=== PATIENT | female | born 1980 | race Caucasian/White ===

== ENCOUNTER 2019-12-20 12:50 | Emergency (ER) | payer SELFPAY ==
[~2019-12-20] VITALS: Ht 180.3 cm; Wt 95.5 kg
[2019-12-20 12:59] VITALS: BP 137/86; TEMP 97.9
[2019-12-20] MEDS ORDERED: CEPHALEXIN500 M1 PO (13:35)
[2019-12-20] MEDS ORDERED: NORCO 325 MG-51 TAB PO (13:36)
[2019-12-20] MEDS ORDERED: ZOFRAN 4MG T4 MG/TAB PO (13:56)
[2019-12-20 14:03] VITALS: PULSE 95
[2019-12-20] MEDS ORDERED: XANAX 0.5MG0.5 MG PO (14:06)
--- NOTE | 2019-12-20 15:17 | NUR ---
Coke Loader received a phone call from Admissions who advised patient was in ED waiting room and would like to speak with social insurance adviser. Patient was discharged from the ED this afternoon. SW met with patient who reports she is currently homeless and staying at [facility]. Patient reports she abuses alcohol and has been binge drinking lately. Patient states she wants to go somewhere to detox if able. SW contacted [facility] in [place] and [facility] in [place], both do not have beds available. [facility] may have a bed later this evening and SW advised patient to call back to check. Patient is interested in having an appointment set up with [facility] for alcohol treatment. KENDALL assisted patient in setting up an appointment for December 27 @ 1400. SW wrote down appointment for patient. Patient advised she has been set up with [facility] for primary care. Patient is self pay and reports she is not sure if she has insurance or not. SW provided [facility] Resource Guide and Drug/Alcohol Resource Guide to patient which included phone numbers for Detox facilities. SW encouraged patient to keep calling to check for bed availability. Patient states she has a ride coming to get her and plans to return to [facility]. No additional needs at this time.
[2019-12-20] MEDS ORDERED: ATIVAN 0.50.5 MG/TAB PO (18:25)
== END 2019-12-20 14:03 | disposition home or self-care (01) ==
LOC: COL.ER 12:50 → EDSEX 12:51 → COL.ER 14:03
DX: S50.812A Abrasion of left forearm, initial encounter (principal); W19.XXXA Unspecified fall, initial encounter

== ENCOUNTER 2019-12-20 16:01 | Emergency (ER) | payer SELFPAY ==
[~2019-12-20] VITALS: Ht 180.3 cm; Wt 95.5 kg
[~2019-12-20 16:01] MED LIST: CEPHALEXIN500 M1 PO; NORCO 325 MG-51 TAB PO; XANAX 0.5MG0.5 MG PO; ZOFRAN 4MG T4 MG/TAB PO
[2019-12-20 16:06] VITALS: TEMP 98.4
[2019-12-20 17:28] LABS: BASO # 0.1 (0.0-0.2); BASO % 0.6 % (0.0-2.0); EOS % 0.2 % (0-4.0); GRAN % 72.7 % (42.2-75.2); HEMATOCRIT 40.8 % (37.0-47.0); HEMOGLOBIN 13.6 g/dl (12.5-16.0); LYMPH # 1.7 (1.2-3.4); LYMPH % 17.2 % (20.0-51.0); MEAN CELL VOLUME 93 fl (80.0-100.0); MEAN CORPUSCULAR HEMOGLOBIN 31 pg (27.0-31.0); MEAN CORPUSCULAR HGB CONC 33 g/dl (33.0-37.0); MEAN PLATELET VOLUME 9.2 fl (7.4-10.4); MONO # 0.9 (0.1-0.6); MONO % 9.1 % (1.7-9.3); PLATELET COUNT 308 K/mm3 (130-400); RED BLOOD COUNT 4.37 M/mm3 (4.10-5.30); REDCELL DISTRIBUTION WIDTH-CV 14.3 % (11.5-14.5)
[2019-12-20 17:37] LABS: ACETAMINOPHEN 18 ug/mL (10-30); ALANINE AMINOTRANSFERASE 20 U/L (4-34); ALBUMIN 4.4 gm/dL (3.5-5.0); ALKALINE PHOSPHATASE 88 U/L (50-136); ANION GAP 9 mmol/L (7-16); AST,SGOT 37 U/L (15-37); BILIRUBIN,TOTAL 0.8 mg/dL (0.0-1.0); BLOOD UREA NITROGEN 5 mg/dL (7-17); CALCIUM 9.5 mg/dL (8.4-10.2); CARBON DIOXIDE 24 mmol/L (22-30); CHLORIDE 101 mmol/L (98-107); CREATININE, serum 0.87 (0.52-1.25); GLUCOSE 130 mg/dL (74-106); POTASSIUM 3.7 mmol/L (3.4-5.0); SODIUM 134 mmol/L (137-145); TOTAL PROTEIN 8.4 gm/dL (6.4-8.2)
[2019-12-20 17:43] LABS: ALCOHOL(ethanol),MEDICAL < 10 mg/dL; SALICYLATE < 1.0 mg/dL
[2019-12-20] MEDS ORDERED: ATIVAN 0.50.5 MG/TAB PO (18:25)
[2019-12-20 18:36] VITALS: BP 101/64; PULSE 88
[2019-12-20 23:19] LABS: TRICYCLIC ANTIDEPRESS URINE NEGATIVE
== END 2019-12-20 18:36 | disposition home or self-care (01) ==
LOC: COL.ER 16:01 → EDSEX 16:02 → COL.ER 18:36
PROVIDERS: Emergency Medicine
DX: F41.9 Anxiety disorder, unspecified (principal); F32.9 Major depressive disorder, single episode, unspecified; F17.200 Nicotine dependence, unspecified, uncomplicated; Z86.59 Personal history of other mental and behavioral disorders

== ENCOUNTER 2019-12-21 17:43 | Emergency (ER) | payer SELFPAY ==
[~2019-12-21] VITALS: Ht 180.3 cm; Wt 95.5 kg
[~2019-12-21 17:43] MED LIST changes: +ATIVAN 0.50.5 MG/TAB PO
[2019-12-21 17:45] VITALS: BP 120/72; PULSE 108
== END 2019-12-21 19:10 | disposition home or self-care (01) ==
LOC: COL.ER 17:43 → EDSEX 17:44 → COL.ER 17:44
DX: M25.572 Pain in left ankle and joints of left foot (principal)
CPT/HCPCS: Q4045

== ENCOUNTER 2019-12-21 21:36 | Emergency (ER) | payer SELFPAY ==
[2019-12-21 23:00] LABS: COLLECTION METHOD CLEAN CATCH
[2019-12-21 23:04] LABS: BASO # 0.1 (0.0-0.2); BASO % 0.3 % (0.0-2.0); EOS % 0.3 % (0-4.0); GRAN # 11.2 (1.4-6.5); GRAN % 77.4 % (42.2-75.2); HEMOGLOBIN 11.8 g/dl (12.5-16.0); LYMPH # 1.9 (1.2-3.4); LYMPH % 13.3 % (20.0-51.0); MEAN CELL VOLUME 92 fl (80.0-100.0); MEAN CORPUSCULAR HEMOGLOBIN 31 pg (27.0-31.0); MEAN CORPUSCULAR HGB CONC 34 g/dl (33.0-37.0); MEAN PLATELET VOLUME 9.1 fl (7.4-10.4); MONO # 1.2 (0.1-0.6); MONO % 8.3 % (1.7-9.3); PLATELET COUNT 280 K/mm3 (130-400); RED BLOOD COUNT 3.83 M/mm3 (4.10-5.30); REDCELL DISTRIBUTION WIDTH-CV 14.2 % (11.5-14.5)
[2019-12-21 23:08] LABS: PH 6 (5-8); SQUAMOUS EPITHELIAL 0-2 /hpf; URINE APPEARANCE Clear; URINE BACTERIA Rare /hpf; URINE BILIRUBIN Negative (NEGATIVE); URINE BLOOD Negative (NEGATIVE); URINE COLOR Yellow; URINE GLUCOSE Negative (NEGATIVE); URINE KETONE Negative (NEGATIVE); URINE LEUKOCYTE ESTERASE Negative (NEGATIVE); URINE NITRATE Negative (NEGATIVE); URINE PROTEIN(semi-quant) Negative (NEGATIVE); URINE RBC 0-2 /hpf; URINE UROBILINOGEN Negative (NEGATIVE)
[2019-12-21 23:14] LABS: ACETAMINOPHEN < 10 ug/mL (10-30); ALANINE AMINOTRANSFERASE 18 U/L (4-34); ALBUMIN 4.2 gm/dL (3.5-5.0); ALCOHOL(ethanol),MEDICAL < 10 mg/dL; ALKALINE PHOSPHATASE 75 U/L (50-136); ANION GAP 6 mmol/L (7-16); AST,SGOT 35 U/L (15-37); BILIRUBIN,TOTAL 0.7 mg/dL (0.0-1.0); BLOOD UREA NITROGEN 8 mg/dL (7-17); CALCIUM 9.1 mg/dL (8.4-10.2); CARBON DIOXIDE 25 mmol/L (22-30); CHLORIDE 104 mmol/L (98-107); CREATININE, serum 0.85 (0.52-1.25); GLUCOSE 95 mg/dL (74-106); HEMATOCRIT 35.1 % (37.0-47.0); POTASSIUM 3.9 mmol/L (3.4-5.0); SALICYLATE < 1.0 mg/dL; SODIUM 136 mmol/L (137-145); TOTAL PROTEIN 7.6 gm/dL (6.4-8.2)
[2019-12-21 23:26] LABS: TRICYCLIC ANTIDEPRESS URINE NEGATIVE
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
--- NOTE | 2019-12-23 15:08 | NUR ---
electronics worker contacted Crisis [facility] and confirmed that patient is awaiting [facility] placement.
--- NOTE | 2019-12-24 12:58 | NUR ---
welfare worker contacted [facility] with [facility] and confirmed that patient is court ordered to transfer to [facility] and will transfer via police department. Worker collaborated with nursing and [facility] regarding the above information.
[2019-12-25 08:04] VITALS: TEMP 97.8
[2019-12-26 14:08] VITALS: BP 106/71; PULSE 103
== END 2019-12-26 14:22 ==
LOC: COL.ER 21:36 → EDSEX 21:38 → COL.ER 21:38
PROVIDERS: Emergency Medicine
DX: F41.9 Anxiety disorder, unspecified (principal); F91.9 Conduct disorder, unspecified
CPT/HCPCS: Q4045